=== PATIENT | male | born 1965 | race Caucasian/White ===

== ENCOUNTER → 2022-09-24 | Outpatient (CLI) | payer OTHER ==
--- NOTE | 2022-09-24 18:22 | US ---
EXAMINATION TYPE: US st tissue neck DATE OF EXAM: 09/24/2022 COMPARISON: NONE CLINICAL INDICATION: Male, 57 years old with history of R22.1 SWELLING, MASS AND LUMP; Lump back of n tobias left side. TECHNIQUE: Scanned back of neck left side. FINDINGS: Manager Behavior notes: No abnormalities visualized. Provided images along the right posterior neck demonstrates a bony protuberance. Comparison images to the contralateral left side show a smaller bony protuberance. The exact etiology is unclear. Some va riation in size of normal bony landmarks from side to side is suspected. Clinical follow-up can be pe rformed. IMPRESSION: Clinical follow-up; suspect variation in size of normal bony landmarks left posterior neck. If any en larging palpable area or suspicious clinical features, recommend contrast enhanced CT neck.
== END | disposition home or self-care (01) ==
LOC: RADUSWWP 14:13
PROVIDERS: ATTEND Family Medicine
DX: R22.1 Localized swelling, mass and lump, neck (principal)
CPT/HCPCS: 76536